=== PATIENT | female | born 1970 | race African-American/Black ===

== ENCOUNTER 2021-12-30 09:54 | Emergency (ER) | payer BC ==
[2021-12-30 10:14] VITALS: BP 143/87; PULSE 99; TEMP 98.3; BMI 32.8
[2021-12-30] MEDS ORDERED: KETOROLAC TROMETHAMINE 30 MG/1 ML VIAL IM ONE (10:47)
[2021-12-30] MEDS ORDERED: KETOROLAC TROMETHAMINE 30 MG/1 ML VIAL ONE (11:17)
== END 2021-12-30 12:07 | disposition home or self-care (01) ==
LOC: JERFT 09:54
PROC: 3E0233Z Introduction of Anti-inflammatory into Muscle, Percutaneous Approach (ICD-10-PCS; principal; 2021-12-30)
DX: M25.572 Pain in left ankle and joints of left foot (principal)
CPT/HCPCS: 73610-TC-LT-FY; 99284-25